=== PATIENT | male | born 1975 | race Caucasian/White ===

== ENCOUNTER 2017-01-09 14:54 | Emergency (ER) | payer OTHER ==
--- NOTE | 2017-01-09 15:54 | Emergency Department Record ---
History of Present Illness - General Chief Complaint: Knee injury Stated Complaint: RT KNEE INJURY Time Seen by Provider: 01/09/17 15:41 Source: Patient Mode of Arrival: Ambulatory - History of Present Illness Initial Comments: STEPPED IN A hole in yard yesterday and it swelled up slowly Complaint: Knee injury Onset/Timin -: Hour(s) Type of Injury: Unknown Place: Street/outdoors Severity: Moderate Severity scale (1-10): 7 Improves With: Cold therapy, Immobilization Worsens With: Weight bearing Context: Walking Associated Symptoms: Unable to bear weight Treatments Prior to Arrival: Cold therapy - Related Data Home Medications Medication Instructions Recorded Confirmed Last Taken Insulin Aspart [Novolog] 1 unit SQ ASDIR 01/09/17 01/09/17 01/09/17 Lisinopril 40 mg PO DAILY 01/09/17 01/09/17 01/09/17 Pravastatin Sodium [Pravachol] 40 mg PO DAILY 01/09/17 01/09/17 01/09/17 Tramadol HCl [Ultram] 50 mg PO DAILY 01/09/17 01/09/17 01/09/17 Previous Rx's Medication Instructions Recorded Naproxen [Naprosyn] 500 mg PO Q12H #30 tab. 01/09/17 Allergies Allergy/AdvReac Type Severity Reaction Status Date / Time No Known Drug Allergies Allergy Verified 01/09/17 15:02 Travel Screening - Travel/Exposure Within Last 30 Days Have you traveled within the last 30 days?: No - Travel/Exposure Within Last Year Have you traveled outside the [place] in the last year?: No - Additonal Travel Details Have you been exposed to anyone with a communicable illness?: No - Travel Symptoms Symptom Screening: None Review of Systems Reviewed: No additional complaints except as noted below Constitutional: Reports: As per HPI. Denies: Chills, Fever, Malaise, Night sweats, Weakness, Weight change Eyes: Reports: As per HPI. Denies: Eye discharge, Eye pain, Photophobia, Vision change ENT: Reports: As per HPI. Denies: Congestion, Dental pain, Ear pain, Epistaxis , Hearing loss, Throat pain Respiratory: Reports: As per HPI. Denies: Cough, Dyspnea, Hemoptysis, Stridor, Wheezes Cardiovascular: Reports: As per HPI. Denies: Arrhythmia, Chest pain, Dyspnea on exertion, Edema, Murmurs, Orthopnea, Palpitations, Paroxysmal nocturnal dyspnea, Rheumatic Fever, Syncope Endocrine: Reports: As per HPI. Denies: Fatigue, Heat or cold intolerance, Polydipsia, Polyuria Gastrointestinal: Reports: As per HPI. Denies: Abdominal pain, Constipation, Diarrhea, Hematemesis, Hematochezia, Melena, Nausea, Vomiting Genitourinary: Reports: As per HPI. Denies: Dysuria, Frequency, Hematuria, Incontinence, Retention, Testicular pain, Testicular mass, Urgency Musculoskeletal: Reports: As per HPI, Joint swelling. Denies: Arthralgia, Back pain, Gout, Myalgia, Neck pain Skin: Reports: As per HPI. Denies: Bruising, Change in color, Change in hair/ nails, Lesions, Pruritus, Rash Neurological: Reports: As per HPI. Denies: Abnormal gait, Confusion, Headache, Numbness, Paresthesias, Seizure, Tingling, Tremors, Vertigo, Weakness Psychiatric: Reports: As per HPI. Denies: Anxiety, Auditory hallucinations, Depression, Homicidal thoughts, Suicidal thoughts, Visual hallucinations Hematological/Lymphatic: Reports: As per HPI. Denies: Anemia, Blood Clots, Easy bleeding, Easy bruising, Swollen glands Past Medical History - SOCIAL HISTORY Smoking Status: Never smoker Alcohol Use: Rare Drug Use: None - RESPIRATORY Hx Respiratory Disorders: No - CARDIOVASCULAR Hx Cardio Disorders: Yes Hx Hypertension: Yes - NEURO Hx Neuro Disorders: No - GI Hx GI Disorders: No - Hx Genitourinary Disorders: No - ENDOCRINE Hx Endocrine Disorders: Yes Hx Diabetes: Yes - MUSCULOSKELETAL Hx Musculoskeletal Disorders: Yes Hx Arthritis: Yes Comment:: DJD - PSYCH Hx Psych Problems: No - HEMATOLOGY/ONCOLOGY Hx Hematology/Oncology Disorders: No Family Medical History Any Significant Family History?: No Physical Exam - General General Appearance: Alert, Oriented x3, Cooperative, No acute distress - Head Head exam: Normal inspection - Eye Eye exam: Normal appearance, PERRL Pupils: Normal accommodation - ENT ENT exam: Normal exam, Mucous membranes moist, Normal external ear exam, Normal orophraynx, TM's normal bilaterally Ear exam: Normal external inspection. negative: External canal tenderness Nasal Exam: Normal inspection. negative: Discharge, Sinus tenderness Mouth exam: Normal external inspection, Tongue normal Teeth exam: Normal inspection. negative: Dental caries Throat exam: Normal inspection. negative: Tonsillar erythema, Tonsillar exudate - Neck Neck exam: Normal inspection, Full ROM. negative: Tenderness - Respiratory Respiratory exam: Normal lung sounds bilaterally. negative: Respiratory distress - Cardiovascular Cardiovascular Exam: Regular rate, Normal rhythm, Normal heart sounds - GI/Abdominal GI/Abdominal exam: Soft, Normal bowel sounds. negative: Tenderness - Rectal Rectal exam: Deferred - exam: Deferred - Extremities Extremities exam: Joint swelling, Normal capillary refill, Tenderness (knee right swollen) - Back Back exam: Reports: Normal inspection, Full ROM. Denies: Muscle spasm, Rash noted, Tenderness - Neurological Neurological exam: Alert, Normal gait, Oriented X3, Reflexes normal - Psychiatric Psychiatric exam: Normal affect, Normal mood - Skin Skin exam: Dry, Intact, Normal color, Warm Course Vital Signs 01/09/17 01/09/17 14:59 15:05 Temperature 98.6 F 98.6 F Pulse Rate [ 91 H Pulse Ox Probe] Respiratory 21 21 Rate Blood Pressure 124/76 [Left Arm] Pulse Ox 99 99 Medical Decision Making - Data Complexity MDM Data: X-Ray Ordered and/or Reviewed (negative for fractures) Disposition Clinical Impression: Sprain, knee Qualifiers: Encounter type: initial encounter Involved ligament of knee: unspecified ligament Laterality: right Qualified Code(s): S83.91XA - Sprain of unspecified site of right knee, initial encounter Disposition: Home, Self-Care Condition: (1) Good Instructions: Knee Sprain (ED), Swollen Knee Joint (ED) Additional Instructions: follow up with family in 5 days crutches off work for2 days than on crutches for 5 days Prescriptions: Naproxen [Naprosyn] 500 mg PO Q12H #30 tab.dr Forms: Patient Portal Access Time of Disposition: 16:49
--- NOTE | 2017-01-11 09:19 | RADIOLOGY REPORT ---
EXAM: RIGHT KNEE HISTORY: PATIENT TWISTED KNEE YESTERDAY WITH PAIN RIGHT KNEE. TECHNIQUE: Five views of the right knee were obtained. Comparison: None. Encounter: Initial. FINDINGS: Small spur along the superior margin of the patella anteriorly likely related to the quadriceps tendon insertion site. Minor spurring along the lateral aspect of the patella consistent with minor degenerative arthritis. No definite acute fracture, dislocation, or joint effusion of the right knee identified. IMPRESSION: SOME MINOR SPURRING WITH SOME MINOR DEGENERATIVE ARTHRITIS AT THE RIGHT KNEE. NO DEFINITE FRACTURE IDENTIFIED. JOB NUMBER: [id number] MTDD
== END 2017-01-09 17:18 | disposition home or self-care (01) ==
LOC: ER 14:54
DX: S83.91XA Sprain of unspecified site of right knee, initial encounter (principal); X50.1XXA Overexertion from prolonged static or awkward postures, initial encounter; Y92.410 Unspecified street and highway as the place of occurrence of the external cause
CPT/HCPCS: 99283

== ENCOUNTER 2017-06-04 22:57 | Emergency (ER) | payer OTHER ==
[2017-06-04] MEDS: DIAZEPAM 5 MG/1 ML TUBX IM ONE (23:35)
[2017-06-04] MEDS: HYDROMORPHONE HCL 1MG/ML **SYRINGE IM ONE (23:36)
[2017-06-04] MEDS: KETOROLAC 30 MG/ML VIAL IM ONE (23:36)
[2017-06-04] MEDS: PROMETHAZINE HCL 25 MG/ML VIAL IM ONE (23:36)
--- NOTE | 2017-06-04 23:59 | Emergency Department Record ---
History of Present Illness - General Chief Complaint: Neck Injury/Pain Stated Complaint: NECK PAIN Time Seen by Provider: 06/04/17 23:13 Source: Patient Mode of Arrival: Ambulatory Limitations: No limitations - History of Present Illness Initial Comments: pt did a lot of work looking down 3 days ago and has been having pain ever since. with lrom.no numbness MD Complaint: Neck pain Onset/Timin -: Week(s) Place: Work Severity scale (1-10): 9 Quality: Sharp, Stabbing Consistency: Constant, Getting worse Worsens With: Movement of neck Associated Symptoms: None Treatments Prior to Arrival: Ibuprofen, Heat therapy - Related Data Previous Rx's Medication Instructions Recorded Diazepam [Valium] 5 mg PO Q8H #10 tab 06/05/17 Hydrocodone/Acetaminophen [[place] 1 each PO QID #10 tablet 06/05/17 5-325 Tablet] Ibuprofen [Motrin] 800 mg PO Q8H PRN #20 tab 06/05/17 Allergies Allergy/AdvReac Type Severity Reaction Status Date / Time No Known Drug Allergies Allergy Verified 01/09/17 15:02 Travel Screening - Travel/Exposure Within Last 30 Days Have you traveled within the last 30 days?: No - Travel Symptoms Symptom Screening: None Review of Systems Reviewed: No additional complaints except as noted below Constitutional: Reports: As per HPI. Denies: Chills, Fever, Malaise, Night sweats, Weakness, Weight change Eyes: Reports: As per HPI. Denies: Eye discharge, Eye pain, Photophobia, Vision change ENT: Reports: As per HPI. Denies: Congestion, Dental pain, Ear pain, Epistaxis , Hearing loss, Throat pain Respiratory: Reports: As per HPI. Denies: Cough, Dyspnea, Hemoptysis, Stridor, Wheezes Cardiovascular: Reports: As per HPI. Denies: Arrhythmia, Chest pain, Dyspnea on exertion, Edema, Murmurs, Orthopnea, Palpitations, Paroxysmal nocturnal dyspnea, Rheumatic Fever, Syncope Endocrine: Reports: As per HPI. Denies: Fatigue, Heat or cold intolerance, Polydipsia, Polyuria Gastrointestinal: Reports: As per HPI. Denies: Abdominal pain, Constipation, Diarrhea, Hematemesis, Hematochezia, Melena, Nausea, Vomiting Genitourinary: Reports: As per HPI. Denies: Dysuria, Frequency, Hematuria, Incontinence, Retention, Testicular pain, Testicular mass, Urgency Musculoskeletal: Reports: As per HPI. Denies: Arthralgia, Back pain, Gout, Joint swelling, Myalgia, Neck pain Skin: Reports: As per HPI. Denies: Bruising, Change in color, Change in hair/ nails, Lesions, Pruritus, Rash Neurological: Reports: As per HPI. Denies: Abnormal gait, Confusion, Headache, Numbness, Paresthesias, Seizure, Tingling, Tremors, Vertigo, Weakness Psychiatric: Reports: As per HPI. Denies: Anxiety, Auditory hallucinations, Depression, Homicidal thoughts, Suicidal thoughts, Visual hallucinations Hematological/Lymphatic: Reports: As per HPI. Denies: Anemia, Blood Clots, Easy bleeding, Easy bruising, Swollen glands Past Medical History - SOCIAL HISTORY Smoking Status: Never smoker - RESPIRATORY Hx Respiratory Disorders: No - CARDIOVASCULAR Hx Cardio Disorders: Yes Hx Hypertension: Yes Comment:: high cholesterol - NEURO Hx Neuro Disorders: Yes Hx Seizures: Yes (04/22/17 waiting on test results) - GI Hx GI Disorders: No - Hx Genitourinary Disorders: No - ENDOCRINE Hx Endocrine Disorders: Yes Hx Diabetes: Yes - MUSCULOSKELETAL Hx Musculoskeletal Disorders: Yes Hx Arthritis: Yes Comment:: DJD - PSYCH Hx Psych Problems: No - HEMATOLOGY/ONCOLOGY Hx Hematology/Oncology Disorders: No Family Medical History Any Significant Family History?: Yes Hx Diabetes: Father Hx Heart Disease: Grandparents Hx HTN: Grandparents Physical Exam - General General Appearance: Alert, Oriented x3, Cooperative, Mild distress - Head Head exam: Normal inspection - Eye Eye exam: Normal appearance, PERRL, EOMI Pupils: Normal accommodation - ENT ENT exam: Normal exam, Mucous membranes moist, Normal external ear exam, Normal orophraynx, TM's normal bilaterally Ear exam: Normal external inspection. negative: External canal tenderness Nasal Exam: Normal inspection. negative: Discharge, Sinus tenderness Mouth exam: Normal external inspection, Tongue normal Teeth exam: Normal inspection. negative: Dental caries Throat exam: Normal inspection. negative: Tonsillar erythema, Tonsillar exudate - Neck Neck exam: Tenderness, Other (muscle spasm). negative: Full ROM - Respiratory Respiratory exam: Normal lung sounds bilaterally. negative: Respiratory distress - Cardiovascular Cardiovascular Exam: Regular rate, Normal rhythm, Normal heart sounds - GI/Abdominal GI/Abdominal exam: Soft, Normal bowel sounds. negative: Tenderness - Rectal Rectal exam: Deferred - exam: Deferred - Extremities Extremities exam: Normal inspection, Full ROM, Normal capillary refill. negative: Tenderness - Back Back exam: Reports: Normal inspection, Full ROM. Denies: Muscle spasm, Rash noted, Tenderness - Neurological Neurological exam: Alert, Normal gait, Oriented X3, Reflexes normal - Psychiatric Psychiatric exam: Normal affect, Normal mood - Skin Skin exam: Dry, Intact, Normal color, Warm Course Vital Signs 06/04/17 23:03 Temperature 98.4 F Pulse Rate 69 Respiratory 16 Rate Blood Pressure 152/87 Pulse Ox 99 Disposition Disposition: Discharge Clinical Impression: Torticollis, acute Disposition: Home, Self-Care Condition: (1) Good Instructions: Spasmodic Torticollis (ED) Additional Instructions: follow up with family doctor. return sooner if worse. Prescriptions: Diazepam [Valium] 5 mg PO Q8H #10 tab Hydrocodone/Acetaminophen [[place] 5-325 Tablet] 1 each PO QID #10 tablet Ibuprofen [Motrin] 800 mg PO Q8H PRN #20 tab PRN Reason: Pain - Moderate (5-7) Forms: Patient Portal Access Quality - Quality Measures Quality Measures: N/A - Blood Pressure Screening Does Patient Have Any of the Following: No Blood Pressure Classification: Pre-Hypertensive BP Reading Systolic Measurement: 152 Diastolic Measurement: 87 Screening for High Blood Pressure: < Pre-Hypertensive BP, F/U Documented > [ [id number]] Pre-Hypertensive Follow-up Interventions: Follow-up with rescreen every year.
[2017-06-05] MEDS: HYDROMORPHONE HCL 1MG/ML **SYRINGE IM ONE (00:41)
--- NOTE | 2017-06-05 13:09 | RADIOLOGY REPORT ---
EXAM: CERVICAL SPINE Minimum 4 Views HISTORY: NECK PAIN WITH NO KNOWN INJURY. TECHNIQUE: Two views. FINDINGS: There is loss of normal cervical lordosis. There is slight kyphosis centered within the mid cervical spine. There appears to be fusion at the C2-3 level. This may be congenital or developmental. There is a questionable lucency through the dens on lateral view , although this is not well assessed radiographically. CT cervical spine would be recommended for better assessment. Moderate degenerative disc disease at C5- 6 and slight lesser at C4-5 and C6-7. No significant loss of vertebral body height. No precervical soft tissue swelling. IMPRESSION: THERE APPEARS TO BE FUSION INVOLVING THE C2-3 VERTEBRAL BODIES AND POSSIBLE LUCENCY THROUGH THE DENS. THIS IS POORLY ASSESSED RADIOGRAPHICALLY. A PRECAUTION, RECOMMEND CT CERVICAL SPINE FOR FURTHER ASSESSMENT. JOB NUMBER: [id number] [facility]
== END 2017-06-05 01:14 | disposition home or self-care (01) ==
LOC: ER 22:57
DX: G24.3 Spasmodic torticollis (principal)
CPT/HCPCS: 99283; 96372; 99284; 72050; J1885; J1170 ×2; J2550; J3360